=== PATIENT | female | born 1945 | race Caucasian/White ===

== ENCOUNTER → 2016-10-27 | Day surgery (SDC) | payer MEDICARE, OTHER ==
--- NOTE | 2016-10-22 12:24 | HISTORY AND PHYSICAL E ---
History and Physical NAME: BECKY MCCRARY : 1945 AGE: 71Y ADMITTED: 10/27/2016 ROOM: HISTORY: Patient known to me. 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 She was seen for adenoma polyp. She did have upper endoscopy and polypectomy. Barium enema shows mild diverticulosis done year 1999, sigmoid and descending colon diverticulosis. Colonoscopy done year 2004. In 2005, she did have upper endoscopy showing polyp. PAST SURGICAL HISTORY: 1. Cholecystectomy. 2. Tonsillectomy. PHYSICAL EXAMINATION: VITAL SIGNS: Temperature is 98, pulse 80, respirations 18, blood pressure 110/80. HEAD, EYES, EARS, NOSE, THROAT: Normal. ABDOMEN: Soft. NEUROLOGIC: Exam negative. The patient did have gastric polyp resected. Patient did have polypectomy. The patient has several small gastric polyps. No polypectomy was done. Patient did have another upper endoscopy done 2014. She did have history of polyps resected. Mucosa resection at [place]. The upper scope showed no malignancy. Benign looking gastric polyps 2014. The patient presented at this time regarding colon screening. 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 She is being followed and seen by Dr. Coats. MEDICATIONS: 1. She has diabetes - Januvia. 2. She takes valsartan. 3. Baby aspirin. 4. Fish oil. 5. Vitamin D. 6. Metformin. 7. . 8. Claritin. 9. Dukedom. 10. Zyrtec. CONCLUSION: Patient presents at this time for colon screening. PLAN: Colonoscopy. Admit 10/27/2016. DICTATING PHYSICIAN: IQRA CHNEG M.D. [id number] PHY#: [id number] ID: [id number] JOB#: [id number] ACCT: [id number] cc:IQRA CHENG M.D. >
[~2016-10-27] MED LIST: EPINEPHRINE INJ 1 MG/10 ML DISP.SYRIN ONE; FENTANYL CITRATE INJ/PF 100 MCG/2 ML AMPUL ONE; FLUMAZENIL INJ 0.5 MG/5 ML VIAL IV ONE; GLUCAGON,HUMAN RECOMB 1 MG INJ ONE; GLYCOPYRROLATE INJ 0.4 MG/2 ML VIAL ONE; LIDOCAINE 2% JELLY 30 ML TUBE ONE; NALOXONE HCL INJ/PF 0.4 MG/1 ML SDV ONE; ONDANSETRON HCL INJ/PF 4 MG/2 ML SDV ONE; SIMETHICONE 80 MG TAB.CHEW ONE
[2016-10-27] MEDS: MIDAZOLAM 2 MG/2 ML INJ ONE ×3 (08:55→09:08)
[2016-10-27 10:26] VITALS: BP 148/57
--- NOTE | 2016-10-27 10:39 | RADIOLOGY REPORT (SQ) ---
EXAM DESCRIPTION: CT ABD/PELVIS NO ORAL OR IV COMPLETED DATE/TIME: 10/27/2016 10:15 am REASON FOR STUDY: R/O PERFORATION Z12.11 ENCOUNTER FOR SCREENING FOR MALIGNANT NEOPLASM OF COL K57. 30 DVRTCLOS OF LG INT W/O PERFORATION OR ABSCESS W/O BLE Z79.899 OTHER [facility] (CURRENT) DRUG THE RAPY COMPARISON: 07/04/2011 CT abdomen pelvis TECHNIQUE: CT scan of the abdomen and pelvis performed without intravenous or oral contrast. Images reviewed with lung, soft tissue, and bone windows. Reconstructed coronal and sagittal MPR images revi ewed. All images stored on PACS. All CT scanners at this facility use dose modulation, iterative reconstruction, and/or weight based d osing when appropriate to reduce radiation dose to as low as reasonably achievable (ALARA). [facility]: Dose Right [facility]: CareDose [facility]: Dose Right [facility]: Teradose 4D [facility]: [employer] RADIATION DOSE: Up-to-date CT equipment and radiation dose reduction techniques were employed. CTDIv ol: 30.9 mGy. DLP: 1602 mGy-cm.mGy. LIMITATIONS: None. FINDINGS: No CT evidence of free intraperitoneal air post endoscopy. There is mild gaseous distensi on of colon and small bowel, appropriate for post procedure. LOWER CHEST: No significant findings. No nodules or infiltrates. NON-CONTRASTED LIVER, SPLEEN, ADRENALS: Evaluation limited by lack of IV contrast. No identified sign ificant masses. Fatty liver, mildly enlarged. PANCREAS: No masses. No peripancreatic inflammatory changes. GALLBLADDER: Surgically absent RIGHT KIDNEY AND URETER: No suspicious masses. Assessment limited by lack of IV contrast. Less than 5 mm intrarenal nonobstructive right lower pole calculi. No hydronephrosis or hydroureter. LEFT KIDNEY AND URETER: No suspicious masses. Assessment limited by lack of IV contrast. Less than 2 mm intrarenal nonobstructive left lower pole calculi. No hydronephrosis or hydroureter. AORTA AND RETROPERITONEUM: No aneurysm. Heavily calcified abdominal aorta BOWEL AND PERITONEAL CAVITY: No obvious masses or inflammatory changes. No free fluid. APPENDIX: Surgically absent PELVIS, BLADDER, AND ABDOMINAL WALL:No abnormal masses. No free fluid. Bladder normal. Normal size f emale pelvic organs. BONES: Advanced degenerative disc changes in the lumbar spine. OTHER: No other significant finding. IMPRESSION: No free intraperitoneal air. TECHNICAL DOCUMENTATION: JOB ID: [id number] Quality ID # [id number]: Final reports with documentation of one or more dose reduction techniques (e.g., Au tomated exposure control, adjustment of the mA and/or kV according to patient size, use of iterative reconstruction technique) 2010 [employer]- All Rights Reserved
[2016-10-27 11:07] LABS: ABSOLUTE LYMPHOCYTES (AUTO) 1.7 10^3/uL (0.5-4.7); ABSOLUTE MONOCYTES (AUTO) 0.7 10^3/uL (0.1-1.4); BASOPHILS % (AUTO) 0.2 % (0-2); EOSINOPHILS % (AUTO) 0.3 % (0-6); HEMATOCRIT 44.5 % (36.0-47.0); HEMOGLOBIN 14.9 g/dL (12.0-15.5); HGB HCT DIFFERENCE 0.2; LYMPHOCYTES % (AUTO) 12.7 % (13-45); MEAN CORPUSCULAR HEMOGLOBIN 29.8 pg (27.0-33.4); MEAN CORPUSCULAR HGB CONC 33.5 g/dL (32.0-36.0); MEAN CORPUSCULAR VOLUME 89 fl (80-97); MONOCYTES % (AUTO) 4.9 % (3-13); RED CELL DISTRIBUTION WIDTH 13.2 % (11.5-14.0); SEGMENTED NEUTROPHILS % (AUTO) 81.9 % (42-78); WHITE BLOOD COUNT 13.4 10^3/uL (4.0-10.5)
[2016-10-27 11:28] LABS: ALANINE AMINOTRANSFERASE 51 U/L (9-52); ALBUMIN 4.4 g/dL (3.5-5.0); ALKALINE PHOSPHATASE 87 U/L (38-126); ANION GAP 12 (5-19); ASPARTATE AMINO TRANSFERASE 70 U/L (14-36); BILIRUBIN,DIRECT 0.4 mg/dL (0.0-0.4); BILIRUBIN,TOTAL 0.7 mg/dL (0.2-1.3); BLOOD UREA NITROGEN 11 mg/dL (7-20); CALCIUM 9.8 mg/dL (8.4-10.2); CARBON DIOXIDE 30 mmol/L (22-30); CHLORIDE 97 mmol/L (98-107); CREATININE RESULT 0.64 mg/dL (0.52-1.25); GLUCOSE 220 mg/dL (75-110); POTASSIUM 3.8 mmol/L (3.6-5.0); SODIUM 139.2 mmol/L (137-145); TOTAL PROTEIN 7.3 g/dL (6.3-8.2)
[2016-10-27 11:58] LABS: CARCINOEMBRYONIC ANTIGEN 1.2 ng/mL (<3.0)
--- NOTE | 2016-10-27 14:13 | OPERATIVE REPORT E ---
Operative Report NAME: BECKY MCCRARY : 1945 AGE: 71Y DATE OF SURGERY: 10/27/2016 ROOM: PREOPERATIVE DIAGNOSES: 1. Colon screening. 2. Diverticulosis. POSTOPERATIVE DIAGNOSES: 1. Rectal polyp. 2. Sigmoid descending colon diverticulosis. PROCEDURE: Incomplete colonoscopy to the descending colon SURGEON: IQRA CHENG M.D. ANESTHESIA: Versed 3, fentanyl 100. DESCRIPTION OF PROCEDURE: Rectal exam shows tiny rectal polyp, biopsy obtained. Sigmoid descending colon diverticulosis. The procedure was terminated in the descending colon. Patient has large amount of diverticulosis and she has sigmoid descending colon diverticulosis and her abdomen has protrusion. CONCLUSION: Incomplete colonoscopy converted into incomplete to the descending colon. Sigmoid descending colon diverticulosis and rectal polyp. Unable to go through the transverse colon secondary to tortuosity and diverticulosis and protrusion of the abdomen. PLAN: Will obtain abdominal pelvic CT with no dye and no barium, plain abdominal pelvic CT to rule out perforation. Will obtain baseline CBC, CEA, and chem profile. DICTATING PHYSICIAN: IQRA CHENG M.D. [id number] PHY#: [id number] ID: [id number] JOB#: [id number] ACCT: [id number] cc:IQRA CHENG M.D. >
--- NOTE | 2016-10-27 14:35 | HX & PHYSICAL/DISCHG SUMMARY E ---
History and Physical/Discharge Summary NAME: BECKY MCCRARY : 1945 AGE: 71Y ADMITTED: 10/27/2016 DISCHARGED: 10/27/2016 HISTORY: Patient is 71, presented for colon screening colonoscopy. It was difficult incomplete to the descending. She did have benign looking polyps. Rectum, sigmoid, descending colon diverticulosis. Because of difficult colonoscopy, we obtained abdominal CT. The abdominal CT reported verbally no evidence of perforation. Clinically the patient felt fine and she is discharged to be seen as an outpatient. FINAL DIAGNOSIS: Sigmoid, descending colon diverticulosis. Benign looking polyp rectosigmoid. PLAN: Clear liquid diet. Awaiting biopsy results. Patient to see us in the office in the next few days. DICTATING PHYSICIAN: IQRA CHENG M.D. [id number] PHY#: [id number] ID: [id number] JOB#: [id number] ACCT: [id number] cc:IQRA CHENG M.D. >
== END ==
LOC: END 08:15
PROVIDERS: ATTEND Specialist
PROC: 0DBP8ZX Excision of Rectum, Via Natural or Artificial Opening Endoscopic, Diagnostic (ICD-10-PCS; principal; 2016-10-27 09:00)
DX: Z12.11 Encounter for screening for malignant neoplasm of colon (principal); K63.5 Polyp of colon; K57.30 Diverticulosis of large intestine without perforation or abscess without bleeding; R97.0 Elevated carcinoembryonic antigen [CEA]; Z79.899 Other long term (current) drug therapy; Z79.84 Long term (current) use of oral hypoglycemic drugs; Z79.82 Long term (current) use of aspirin
CPT/HCPCS: 36415; 45380; 74176; 80053; 82378; 82962; 85025; 88305; J0171; J1610; J2250; J2310; J2405; J3010; J3490

== ENCOUNTER 2018-02-06 13:30 | Emergency (ER) | payer MEDICARE, OTHER ==
--- NOTE | 2018-02-06 14:03 | ER Document Report ---
ED Hand/Wrist Injury - General Mode of Arrival: Ambulatory Information source: Patient TRAVEL OUTSIDE OF THE [place] IN LAST 30 DAYS: No <PILLO ACEVEDO - Last Filed: 02/06/18 14:23> <AMY APONTE - Last Filed: 02/06/18 17:22> - General Chief Complaint: Hand Pain Stated Complaint: THUMB PAIN Time Seen by Provider: 02/06/18 13:58 Notes: 72-year-old female who presents to the emergency department today with complaints of right thumb pain with associated redness and swelling which began last night. Patient states she was "popping a head of lettuce" when the pain began. Patient states she has a history of arthritis but denies a history of osteoporosis. (PILLO ACEVEDO) - Related Data Allergies/Adverse Reactions: No Known Allergies Allergy (Verified 10/27/16 08:40) Past Medical History - General Information source: Patient - Social History Smoking Status: Former Smoker Cigarette use (# per day): No Chew tobacco use (# tins/day): No Frequency of alcohol use: None Drug Abuse: None Lives with: Family Family History: Reviewed & Not Pertinent Patient has suicidal ideation: No Patient has homicidal ideation: No - Past Medical History Cardiac Medical History: Reports: Hx Coronary Artery Disease - high chol , Hx Hypercholesterolemia, Hx Hypertension Endocrine Medical History: Reports: Hx Diabetes Mellitus Type 2 GI Medical History: Reports: Hx Gastroesophageal Reflux Disease, Hx Hiatal Hernia Musculoskeletal Medical History: Reports Hx Arthritis Past Surgical History: Reports: Hx Appendectomy - 2011, Hx Cholecystectomy - 1991, Hx Tonsillectomy, 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 - Immunizations Hx Diphtheria, Pertussis, Tetanus Vaccination: Yes Hx Pneumococcal Vaccination: 03/15/13 <PILLO ACEVEDO - Last Filed: 02/06/18 14:23> Review of Systems - Review of Systems Constitutional: No symptoms reported EENT: No symptoms reported Cardiovascular: No symptoms reported Respiratory: No symptoms reported Gastrointestinal: No symptoms reported Genitourinary: No symptoms reported Female Genitourinary: No symptoms reported Musculoskeletal: See HPI, Joint pain - right thumb Skin: No symptoms reported Hematologic/Lymphatic: No symptoms reported Neurological/Psychological: No symptoms reported -: Yes All other systems reviewed and negative <PILLO ACEVEDO - Last Filed: 02/06/18 14:23> Physical Exam <PILLO ACEVEDO - Last Filed: 02/06/18 14:23> <AMY APONTE - Last Filed: 02/06/18 17:22> - Vital signs Vitals: Temp Pulse Resp BP Pulse Ox 97.5 F 81 16 147/76 H 95 02/06/18 13:48 02/06/18 13:48 02/06/18 13:48 02/06/18 13:48 02/06/18 13:48 - Notes Notes: PHYSICAL EXAM GENERAL: Alert, interacts well. No acute distress. HEAD: Normocephalic, atraumatic. EYES: Pupils equal, round, and reactive to light. Extraocular movements intact. ENT: Oral mucosa moist, tongue midline. NECK: Full range of motion. Supple. Trachea midline. LUNGS: No respiratory distress. EXTREMITIES: Moves all 4 extremities spontaneously. Erythema dorsally over the right thumb MCP. This area is not tender with light touch. Mild tenderness to palpation over right thumb MCP. Normal range of motion with thumb to fifth digit testing with some pain. Pain with extension of the right thumb. Pain against resistance of the right thumb. Pain with pronation against resistance, no pain with supination. NEUROLOGICAL: Alert and oriented x3. Normal speech. PSYCH: Normal affect, normal mood. SKIN: Warm, dry, normal turgor. (PILLO ACEVEDO) Course <CURTISPILLO - Last Filed: 02/06/18 14:23> <AMY APONTE - Last Filed: 02/06/18 17:22> - Re-evaluation Re-evalutation: 02/06/18 17:01 X-ray is negative, hand is minimally tender to palpation, the fact that the erythema is really not very tender to palpation points away from gout. Given the degree of erythema I will treat the patient with antibiotics in the form of Keflex for possible cellulitis. Patient will also be placed in an Benito wrap for support and discharged home. (AMY APONTE) - Vital Signs Vital signs: Temp Pulse Resp BP Pulse Ox 98.3 F 72 16 144/59 H 97 02/06/18 17:04 02/06/18 17:04 02/06/18 17:04 02/06/18 17:04 02/06/18 17:04 Procedures - Immobilization right hand Pre-Proc Neuro Vasc Exam: Normal Immobilizer type: Benito wrap Performed by: RN Post-Proc Neuro Vasc Exam: Normal, Unchanged from pre-exam Alignment checked and good: Yes <AMY APONTE - Last Filed: 02/06/18 17:22> Discharge <PILLO ACEVEDO - Last Filed: 02/06/18 14:23> <AMY APONTE - Last Filed: 02/06/18 17:22> - Discharge Clinical Impression: Cellulitis of right thumb Sprain of right thumb Qualifiers: Encounter type: initial encounter Sprain of finger site: metacarpophalangeal joint Qualified Code(s): S63.641A - Sprain of metacarpophalangeal joint of right thumb, initial encounter Condition: Stable Disposition: HOME, SELF-CARE Additional Instructions: Given the popping feeling that you had while you are tearing let us I do think it is prudent to put an Benito wrap on your thumb, this will help to support her thumb in case it was sprained. Given how red this is I also think it is reasonable to put you on antibiotics. Please take the antibiotics as directed until they are gone. Please return if you develop weakness, increasing pain or increasing redness. Prescriptions: Cephalexin Monohydrate [Keflex 500 mg Capsule] 500 mg PO Q6H 7 Days capsule Referrals: ROLLY RAMSAY PA-C [Primary Care Provider] - Follow up as needed Scribe Attestation: 02/06/18 17:22 I personally performed the services described in the documentation, reviewed and edited the documentation which was dictated to the scribe in my presence, and it accurately records my words and actions. (AMY APONTE) Scribe Documentation - Scribe Written by Scribe:: Todd Morales, 02/06/2018 1410 acting as scribe for :: Manav <PILLO ACEVEDO - Last Filed: 02/06/18 14:23>
--- NOTE | 2018-02-06 16:48 | RADIOLOGY REPORT (SQ) ---
EXAM DESCRIPTION: FINGER RIGHT COMPLETED DATE/TIME: 02/06/2018 2:46 pm REASON FOR STUDY: red and pain at R IP joint COMPARISON: None. NUMBER OF VIEWS: Three views. TECHNIQUE: AP, lateral, and oblique images acquired of the right thumb. LIMITATIONS: None. FINDINGS: MINERALIZATION: Normal. BONES: No acute fracture or dislocation. No worrisome bone lesions. SOFT TISSUES: No soft tissue swelling. No foreign body. OTHER: No other significant finding. IMPRESSION: NO RADIOGRAPHIC EVIDENCE OF ACUTE INJURY. COMMENT: SITE OF TRAUMA/COMPLAINT MARKED/STAMP COMPLETED: YES. TECHNICAL DOCUMENTATION: JOB ID: [id number] [employer]- All Rights Reserved Reading location - IP/workstation name: ALEX
[2018-02-06 17:05] VITALS: BP 144/59
== END 2018-02-06 17:12 | disposition home or self-care (01) ==
LOC: ER 13:30
DX: S63.641A Sprain of metacarpophalangeal joint of right thumb, initial encounter (principal); M25.541 Pain in joints of right hand; X58.XXXA Exposure to other specified factors, initial encounter; L03.011 Cellulitis of right finger; I25.10 Atherosclerotic heart disease of native coronary artery without angina pectoris; I10 Essential (primary) hypertension; E11.9 Type 2 diabetes mellitus without complications; Z87.891 Personal history of nicotine dependence
CPT/HCPCS: 99283

== ENCOUNTER 2018-02-16 09:08 | Day surgery (SDC) | payer MEDICARE, OTHER ==
[2018-02-09 10:37] LABS: HEMATOCRIT 40.5 % (36.0-47.0); HEMOGLOBIN 13.8 g/dL (12.0-15.5); MEAN CORPUSCULAR HEMOGLOBIN 30.2 pg (27.0-33.4); MEAN CORPUSCULAR VOLUME 89 fl (80-97); PLATELET COUNT 279 10^3/uL (150-450); RED BLOOD COUNT 4.56 10^6/uL (3.72-5.28); RED CELL DISTRIBUTION WIDTH 13.1 % (11.5-14.0); WHITE BLOOD COUNT 10.6 10^3/uL (4.0-10.5)
[2018-02-09 11:05] LABS: POTASSIUM 4.1 mmol/L (3.6-5.0)
--- NOTE | 2018-02-09 13:00 | EKG REPORT ---
SEVERITY:- BORDERLINE ECG - SINUS RHYTHM BORDERLINE PROLONGED QT INTERVAL : Confirmed by: Sanchez De Los Santos MD 09-Feb-2018 13:00:07
[~2018-02-16 09:08] MED LIST changes: +ACETAMINOPHEN 325 MG TABLET PO PRN; -EPINEPHRINE INJ 1 MG/10 ML DISP.SYRIN ONE; -FENTANYL CITRATE INJ/PF 100 MCG/2 ML AMPUL ONE; -FLUMAZENIL INJ 0.5 MG/5 ML VIAL IV ONE; -GLUCAGON,HUMAN RECOMB 1 MG INJ ONE; -GLYCOPYRROLATE INJ 0.4 MG/2 ML VIAL ONE; +LACTATED RINGERS 1000 ML IV PRN; +LIDOCAINE 0.5% INJ-PF (5 MG/ML) 50 ML SDV SUBCUT PRN; -LIDOCAINE 2% JELLY 30 ML TUBE ONE; -NALOXONE HCL INJ/PF 0.4 MG/1 ML SDV ONE; -ONDANSETRON HCL INJ/PF 4 MG/2 ML SDV ONE; -SIMETHICONE 80 MG TAB.CHEW ONE
[2018-02-16] MEDS ORDERED: PROPOFOL INJ 200 MG/20 ML VIAL IV ONE ×2 (09:55→11:14)
--- NOTE | 2018-02-16 11:08 | Discharge Summary ---
Discharge Summary (SDC) - Discharge Final Diagnosis: 1. History of carcinoid tumors stomach 2. Diverticulosis 3. Rectosigmoid colon polyps Date of Surgery: 02/16/18 Discharge Date: 02/16/18 Condition: Good Treatment or Instructions: [facility] [address] [address] POST ENDOSCOPY DISCHARGE INSTRUCTIONS 1. Diet: Start clear liquids that a regular diet as tolerated. 2. Resume all preoperative medications. All oral anticoagulants and aspirins can be resumed 24 hours after procedure. 3. If a polypectomy was performed some bleeding per rectum may occur. This should stop within 3 days. If not, please contact the office. 4. If you had a colonoscopy you may experience some bloating and delayed return of normal bowel function for several days, your regular bowel movement pattern should resume within a week. 5. Please contact [facility] at to make an appointment with Dr. Marrero for 1 to 3 weeks following procedure. 6. If you have any questions or concerns regarding your care,treatment plan or follow up, please contact our office. 7. Per clinical guidelines we recommend you undergo a repeat colonoscopy in 3 years. Referrals: ROLLY RAMSAY PA-C [Primary Care Provider] - Discharge Diet: As Tolerated Discharge Activity: Activity As Tolerated Home Care Assistance: None Needed Report the Following to Your Physician Immediately: Shortness of Breath, Increase in Pain, Fever over 101 Degrees
--- NOTE | 2018-02-16 11:15 | Operative Report ---
Operative Report DATE OF SURGERY: 02/16/18 PREOPERATIVE DIAGNOSIS: 1. Personal history of carcinoid tumors of the stomach. 2. Diverticulosis, colonic POSTOPERATIVE DIAGNOSIS: Same with 1 diffuse gastritis. 2. Multiple small pedunculated masses of the stomach consistent with residual carcinoid tumors. 3. Sigmoid diverticulosis. 4 active sigmoid colon polyps OPERATION: 1. Esophagogastroduodenoscopy. 2. Gastric antrum mucosal biopsy. 3. Proximal gastric polypectomy x2. 4. Total colonoscopy to cecum with photodocumentation. 5. Multiple colorectal polypectomies SURGEON: CHITRA OLIVAREZ ANESTHESIA: LMAC TISSUE REMOVED OR ALTERED: Biopsies of mucosa and polyps as described above COMPLICATIONS: None ESTIMATED BLOOD LOSS: Scant INTRAOPERATIVE FINDINGS: See below PROCEDURE: Patient was taken to the preop holding area the main operating room where LMAC anesthesia was induced. Surgical timeout Patient was placed in the left semirecumbent position oral mouthpiece inserted and flexible upper endoscope advanced to the oropharynx down the esophagus through the stomach into the duodenum. The patient tolerated the procedure well. The duodenum first and second portions were scope carefully. There was no evidence of polyp tumor stricture bleeding. The ampulla was visualized and photographed. The scope was brought through the pylorus, which was normal. The stomach was without bleeding. There was minimal retained gastric contents which was suctioned uneventfully. The mucosa of the stomach was raw, chronically inflamed multiple photos were taken. In the gastric antrum the mucosa was lobulated and a cold forceps biopsy was obtained for CLOtest and histology. Bleeding was minimal. The stomach were multiple small 2-4 pedunculated polypoid structures consistent with possible carcinoid tumors. Photos were taken. 2 or 3 of these were biopsied and sent as proximal gastric cyst. Bleeding was minimal. The stomach was decompressed of air. The GE junction was visualized at 40 cm from the incisor and it appeared normal. The remainder the esophagus was scope carefully and there was no evidence of tumor stricture bleeding. The scope was withdrawn for patient oropharynx. She tolerated procedure well We now repositioned instrumentation set up for colonoscopy. Rectal exam was performed. External hemorrhoids appreciated. Rectal exam revealed no evidence of mass in the rectal canal. The flexible adult colonoscope was advanced all the way to the cecum. This was a challenging teacher because of the convolutions of the colon, the extensive sigmoid diverticulosis with tortuosity of the sigmoid colon, and the patient's body habitus. Nonetheless this is an excellent set in a well-prepped bowel. The anatomy was appreciated. The scope was checked the mucosa carefully. There was no evidence of tumor stricture bleeding. In the rectosigmoid colon in addition to extensive diverticulosis disease other were multiple small plaque -like polyps which were removed at 20 and 25 cm with a cold forceps device all consistent with hyperplastic polyps. Specimens were sent in one container. Bleeding was minimal. The scope removed . SHe tolerated procedure well and taken recovery in stable condition. Per surveillance guidelines, patient be appropriate candidate for follow-up colonoscopy
[2018-02-16 13:22] VITALS: BP 140/66
== END 2018-02-16 12:15 | disposition home or self-care (01) ==
LOC: OROUT 09:08
PROVIDERS: ATTEND Surgery
DX: C7A.092 Malignant carcinoid tumor of the stomach (principal); K29.50 Unspecified chronic gastritis without bleeding; K57.30 Diverticulosis of large intestine without perforation or abscess without bleeding; K63.5 Polyp of colon; Z86.010 Personal history of colon polyps; E78.00 Pure hypercholesterolemia, unspecified; I10 Essential (primary) hypertension; E11.9 Type 2 diabetes mellitus without complications; I89.0 Lymphedema, not elsewhere classified; Z87.891 Personal history of nicotine dependence; Z79.899 Other long term (current) drug therapy; Z79.82 Long term (current) use of aspirin; Z79.84 Long term (current) use of oral hypoglycemic drugs; E66.9 Obesity, unspecified; Z68.41 Body mass index [BMI] 40.0-44.9, adult; M19.90 Unspecified osteoarthritis, unspecified site
CPT/HCPCS: 43239; 45380; 93005; 82962; 80051; 85027; 88342 ×2; 88305 ×2; 93010; J2704; 813

== ENCOUNTER 2018-12-15 09:33 | Day surgery (SDC) | payer MEDICARE, OTHER ==
[~2018-12-15 09:33] MED LIST changes: -ACETAMINOPHEN 325 MG TABLET PO PRN; +CHONDR SU A NA/HYALUR INTRAOC KIT (SURGICARE) ONE; +EPINEPHRINE INJ/PF 1 MG/1 ML AMPULE ONE; +KETOROLAC TROMETHAMINE 0.45% 4 DROP/0.4 ML DROPERETTE OS PRN; -LACTATED RINGERS 1000 ML IV PRN; -LIDOCAINE 0.5% INJ-PF (5 MG/ML) 50 ML SDV SUBCUT PRN; +LIDOCAINE 1%/PHENYLEPHRINE 1.5% 1 ML VIAL ONE
[2018-12-15] MEDS: TETRACAINE HCL 0.5% OPH SOLN 4 ML OS PRN ×3 (10:45→11:27)
[2018-12-15] MEDS: TROPICAMIDE 1% OPH SOLN 15 ML OS PRN ×3 (10:45→11:05)
[2018-12-15] MEDS: CYCLOPENTOLATE 0.2%/PHENYLEPHRINE 1% OPH SOLN 2 ML OS PRN ×3 (10:45→11:05)
[2018-12-15] MEDS: BESIFLOXACIN HCL 0.6% OPH SUSP 5 ML BOTTLE OS PRN ×5 (10:45→11:51)
[2018-12-15] MEDS ORDERED: MIDAZOLAM 2 MG/2 ML INJ ONE (10:57)
[2018-12-15] MEDS: DORZOLAMIDE HCL 2%/TIMOLOL MALEAT 0.5% OPH SOLN 10 ML OS PRN ×3 (11:50→11:51)
--- NOTE | 2018-12-16 13:03 | Operative Report ---
Operative Report-[facility] Operative Report: DATE OF SURGERY: [12/15/2018] PREOPERATIVE DIAGNOSIS: Cataracts, left eye POSTOPERATIVE DIAGNOSIS: Cataract, left eye OPERATION: Cataract extraction with insertion of an toric IOL of the left eye. Intraocular Lens Model: [21.5 sn6AT5 rotated to 176 degrees] reason for surgery is difficulty seeing road signs SURGEON: Konstantin Freeman MD ANESTHESIA: Topical PROCEDURE: After obtaining appropriate consent, the patient's left eye was prepped and draped in a sterile fashion as well as the surgeon in the sterile manner and cataract surgery was started. First a paracentesis blade was used to make a side-port incision. Viscoelastic was used to inflate the anterior chamber. Next a 2.4 mm incision was made with a 2.4 mm blade, clear corneal temporarily. A continuous capsulorrhexis was made using a cystotome and Utrata forceps. Following this hydrodissection was carried out to make commands fully loose and mobile and it was rotated 90 degrees. Following this, a divide and conquer technique was used to phacoemulsify the lens. The remaining cortex was removed with an irrigation/aspiration. Provisc was instilled into the capsular bag to inflate the bag.The intracular lens was placed. The remaining viscoelastic material was removed with irrigation/aspiration. Following this, the incision was found to be watertight. Besivance and Cosopt was instilled into the eye and a protective shield was placed over the eye. The patient was turned to the postoperative recovery in a stable condition.
== END 2018-12-15 12:46 | disposition home or self-care (01) ==
LOC: SC 09:33
PROVIDERS: ATTEND Internal Medicine
DX: H25.813 Combined forms of age-related cataract, bilateral (principal); H04.123 Dry eye syndrome of bilateral lacrimal glands; H43.813 Vitreous degeneration, bilateral; H18.423 Band keratopathy, bilateral; E11.9 Type 2 diabetes mellitus without complications; E78.00 Pure hypercholesterolemia, unspecified; I25.10 Atherosclerotic heart disease of native coronary artery without angina pectoris; M10.9 Gout, unspecified; E66.9 Obesity, unspecified; I11.9 Hypertensive heart disease without heart failure; Z87.891 Personal history of nicotine dependence; Z79.82 Long term (current) use of aspirin; Z79.899 Other long term (current) drug therapy; Z79.84 Long term (current) use of oral hypoglycemic drugs
CPT/HCPCS: 66984; 82962; 00142; V2787; J2250; J3490 ×2; A9270; J0171; J2370; 142

== ENCOUNTER 2019-01-03 08:56 | Day surgery (SDC) | payer MEDICARE, OTHER ==
[~2019-01-03 08:56] MED LIST changes: -CHONDR SU A NA/HYALUR INTRAOC KIT (SURGICARE) ONE; -EPINEPHRINE INJ/PF 1 MG/1 ML AMPULE ONE; +KETOROLAC TROMETHAMINE 0.45% 4 DROP/0.4 ML DROPERETTE OD PRN; -KETOROLAC TROMETHAMINE 0.45% 4 DROP/0.4 ML DROPERETTE OS PRN; -LIDOCAINE 1%/PHENYLEPHRINE 1.5% 1 ML VIAL ONE
[2019-01-03] MEDS: BESIFLOXACIN HCL 0.6% OPH SUSP 5 ML BOTTLE OD PRN ×4 (10:01→10:57)
[2019-01-03] MEDS: TROPICAMIDE 1% OPH SOLN 15 ML OD PRN ×3 (10:01→10:21)
[2019-01-03] MEDS: CYCLOPENTOLATE 0.2%/PHENYLEPHRINE 1% OPH SOLN 2 ML OD PRN ×3 (10:01→10:21)
[2019-01-03] MEDS: TETRACAINE HCL 0.5% OPH SOLN 4 ML OD PRN ×3 (10:02→10:39)
[2019-01-03] MEDS ORDERED: EPINEPHRINE INJ/PF 1 MG/1 ML AMPULE ONE (10:08)
[2019-01-03] MEDS ORDERED: LIDOCAINE 1%/PHENYLEPHRINE 1.5% 1 ML VIAL ONE (10:08)
[2019-01-03] MEDS ORDERED: CHONDR SU A NA/HYALUR INTRAOC KIT (SURGICARE) ONE (10:09)
[2019-01-03] MEDS ORDERED: FENTANYL CITRATE INJ/PF 100 MCG/2 ML AMPUL ONE (10:41)
[2019-01-03] MEDS ORDERED: MIDAZOLAM 2 MG/2 ML INJ ONE (10:41)
[2019-01-03] MEDS: DORZOLAMIDE HCL 2%/TIMOLOL MALEAT 0.5% OPH SOLN 10 ML OD PRN ×2 (10:57)
--- NOTE | 2019-01-03 12:32 | Operative Report ---
[facility]: DATE OF SURGERY: [01/03/2019] PREOPERATIVE DIAGNOSIS: Cataract, right eye POSTOPERATIVE DIAGNOSIS: Cataract, right eye OPERATION: Cataract extraction with insertion of an toric IOL of the right eye. Intraocular Lens Model: [21.5 sn6at6 at 176 degrees] reason For surgery was difficulty seeing the television SURGEON: Konstantin Freeman MD ANESTHESIA: Topical PROCEDURE: After obtaining appropriate consent, the patient's right eye was prepped and draped in a sterile fashion as well as the surgeon in the sterile manner and cataract surgery was started. First a paracentesis blade was used to make a side-port incision. Viscoelastic was used to inflate the anterior chamber. Next a 2.4 mm incision was made with a 2.4 mm blade, clear corneal temporarily. A continuous capsulorrhexis was made using a cystotome and Utrata forceps. Following this hydrodissection was carried out to make the guero fully loose and mobile and it was rotated. Following this, a divide and conquer technique was used to phacoemulsify the guero. The remaining cortex was removed with an irrigation/aspiration. Provisc was instilled into the capsular bag to inflate the bag. The intraocular lens was placed. The remaining viscoelastic material was removed with irrigation/aspiration. Following this, the incision was found to be watertight. Besivance and Cosopt was instilled into the eye and a protective shield was placed over the eye. The patient was reurned to the postoperative recovery in a stable condition.
== END 2019-01-03 11:36 | disposition home or self-care (01) ==
LOC: SC 08:56
PROVIDERS: ATTEND Internal Medicine
DX: H25.811 Combined forms of age-related cataract, right eye (principal); Z96.1 Presence of intraocular lens; I25.2 Old myocardial infarction; I10 Essential (primary) hypertension; E11.9 Type 2 diabetes mellitus without complications; M10.9 Gout, unspecified
CPT/HCPCS: 82962; 00142; 66984; V2787; J2250; J3490 ×2; A9270; J0171; J3010; J2370; 142

== ENCOUNTER 2020-04-04 06:59 | Day surgery (SDC) | payer MEDICARE, OTHER ==
[2020-04-01 10:14] LABS: HEMATOCRIT 40.2 % (36.0-47.0); HEMOGLOBIN 13.6 g/dL (12.0-15.5); MEAN CORPUSCULAR HEMOGLOBIN 29.7 pg (27.0-33.4); MEAN CORPUSCULAR HGB CONC 33.9 g/dL (32.0-36.0); MEAN CORPUSCULAR VOLUME 88 fl (80-97); PLATELET COUNT 236 10^3/uL (150-450); RED BLOOD COUNT 4.59 10^6/uL (3.72-5.28); RED CELL DISTRIBUTION WIDTH 14.1 % (11.5-14.0); WHITE BLOOD COUNT 8.7 10^3/uL (4.0-10.5)
--- NOTE | 2020-04-01 13:15 | EKG REPORT ---
SEVERITY:- OTHERWISE NORMAL ECG - SINUS RHYTHM LEFT AXIS DEVIATION NONSPECIFIC INTRAVENTRICULAR CONDUCTION DELAY : Confirmed by: Sanchez De Los Santos MD 01-Apr-2020 13:14:18
[~2020-04-04 06:59] MED LIST changes: -KETOROLAC TROMETHAMINE 0.45% 4 DROP/0.4 ML DROPERETTE OD PRN; +RINGERS SOLUTION,LACTATED 1,000 ML IV PRN
--- OUTSIDE RECORDS SUMMARY | 2020-04-04 07:01 | XMS REPORT ---
:1945 [facility] [address] [place] [address] Care Team Providers Name Role Phone Kb KU Attending Clinician Unavailable Saeed KU Attending Clinician Unavailable Sol Unavailable Unavailable Jessica KU, N Unavailable Allergies, Adverse Reactions, Alerts This patient has no known allergies or adverse reactions. Medications Ordered Filled Start Stop Current Ordering Indication Dosage Frequency Signature Comments Components Medication Medication Date Date Medication? Clinician (SIG) Name Name Repatha 2019-03 Yes [place] 140 Repdaryla SureClick 2-15 Kb KU SureClick 140 MG/ML 00:00: 140 MG/ML Subcutaneou 00 Subcutaneo s Solution Auto-inject Solution or Auto-injec tor INJECT 140 MG Other every two weeks Quantity: 3 Refills: 3 Kb KU, Darshan Start : 0Active 2 x 1 ML Pen Telmisartan 2019-0 Yes Telmisarta 80 MG Oral 6-10 n 80 MG Tablet 00:00: Oral 00 Tablet Quantity: 90 Refills: 0 Start : 0Active Valsartan 2019-0 No Valsartan 160 MG Oral 3-02 160 MG Tablet 00:00: Oral 00 Tablet Quantity: 120 Refills: 0 Start : 15-May-2019 Active Atorvastati 2019-0 No Atorvastat n Calcium 3-02 in Calcium 80 MG Oral 00:00: 80 MG Oral Tablet 00 Tablet Quantity: 60 Refills: 0 Start : 15-May-2019 Active levoFLOXaci 2019-0 No levoFLOXac n 750 MG 1-14 in 750 MG Oral Tablet 00:00: Oral 00 Tablet Quantity: 5 Refills: 0 Start : 0Active Benzonatate 2019-0 No Benzonatat 100 MG Oral 1-14 e 100 MG Capsule 00:00: Oral 00 Capsule Quantity: 30 Refills: 0 Start : 0Active ProAir HFA Yes ProAir HFA 108 (90 1-10 108 (90 Base) 00:00: Base) MCG/ACT 00 MCG/ACT Inhalation Inhalation Aerosol Aerosol Solution Solution Quantity: 8 Refills: 0 Start : 0Active metFORMIN 2018-03 Yes metFORMIN HCl ER 500 2-12 HCl ER 500 MG Oral 00:00: MG Oral Tablet 00 Tablet Extended Extended Release 24 Release 24 Hour Hour Quantity: 180 Refills: 0 Start : 9Active Bydureon 2018-03 Yes Bydureon BCise 2 2-12 BCise 2 MG/0.85ML 00:00: MG/0.85ML Subcutaneou 00 Subcutaneo s us Auto-inject Auto-injec or tor Quantity: 3 Refills: 0 Start : 9Active Ciprofloxac 2018-03 No Ciprofloxa in HCl - 0-28 yana HCl - 500 MG Oral 00:00: 500 MG Tablet 00 Oral Tablet Quantity: 10 Refills: 0 Start : 9Active Nitroglycer Yes Francisco Nitroglyce in 0.4 MG -18 Saeed rin 0.4 MG Sublingual 00:00: MD Sublingual Tablet 00 Tablet Sublingual Sublingual DISSOLVE 1 TAB UNDER TONGUE NEEDED FOR CHEST PAIN. MAY REPEAT EVERY 5 MIN UP TO 3 TABS IF NO RELIEF CALL 911. Quantity: 30 Refills: 3 Francisco Tipton MD Start : 9Active Metoprolol Yes Metoprolol Succinate 4-13 Succinate ER 25 MG 00:00: ER 25 MG Oral Tablet 00 Oral Extended Tablet Release 24 Extended Hour Release 24 Hour Quantity: 30 Refills: 0 Start : 9Active Atorvastati No Atorvastat n Calcium 4-13 in Calcium 40 MG Oral 00:00: 40 MG Oral Tablet 00 Tablet Quantity: 30 Refills: 0 Start : 9Active Atorvastati Yes 1 Atorvastat n Calcium 4-13 in Calcium 80 MG Oral 00:00: 80 MG Oral Tablet 00 Tablet TAKE 1 TABLET AT BEDTIME. Quantity: 30 Refills: 2 Start : 9Active Allopurinol Yes Allopurino 300 MG Oral 2-21 l 300 MG Tablet 00:00: Oral 00 Tablet Refills: 0 Start : 9Active Cyanocobala Yes Cyanocobal min 1000 -29 keyes 1000 MCG/ML 00:00: MCG/ML Injection 00 Injection Solution Solution Quantity: 10 Refills: 0 Start : 9Active Janumet XR No Janumet XR 50-1000 MG 1-07 50-1000 MG Oral Tablet 00:00: Oral Extended 00 Tablet Release 24 Extended Hour Release 24 Hour Quantity: 90 Refills: 0 Start : 21-Mar-2018 Active Valsartan No Valsartan 320 MG Oral 1-07 320 MG Tablet 00:00: Oral 00 Tablet Quantity: 90 Refills: 0 Start : 21-Mar-2018 Active Fish Oil Yes Fish Oil 1000 MG 1-07 1000 MG Oral 00:00: Oral Capsule 00 Capsule Quantity: 100 Refills: 0 Start : 21-Mar-2018 Active Loperamide Yes Loperamide HCl - 2 MG 1-07 HCl - 2 MG Oral 00:00: Oral Capsule 00 Capsule Quantity: 60 Refills: 0 Start : 21-Mar-2018 Active Aspirin 81 2017-03 Yes Aspirin 81 MG Oral 1-16 MG Oral Tablet 00:00: Tablet Delayed 00 Delayed Release Release Quantity: 90 Refills: 0 Start : 8Active Loratadine 2017-03 Yes Loratadine 10 MG Oral 1-16 10 MG Oral Tablet 00:00: Tablet 00 Quantity: 90 Refills: 0 Start : 8Active Aspirin 81 2017-03 Yes Aspirin 81 MG Oral 0-23 MG Oral Tablet 10:59: Tablet (81 44 MG) Active Centrum 2017-03 Yes Centrum Silver Oral 0-23 Silver Tablet 10:59: Oral 44 Tablet Active Claritin 10 2017-03 Yes Claritin MG Oral 0-23 10 MG Oral Tablet 10:59: Tablet (10 44 MG) Active Fish Oil 2017-03 Yes Fish Oil 1000 MG 0-23 1000 MG Oral 10:59: Oral Capsule 44 Capsule (1000 MG) Active Januvia 50 2017-03 Yes Januvia 50 MG Oral 0-23 MG Oral Tablet 10:59: Tablet (50 44 MG) Active Meclizine 2017-03 Yes Meclizine HCl 25 MG 0-23 HCl 25 MG Oral Tablet 10:59: Oral 44 Tablet (25 MG) Active MetFORMIN 2017-03 Yes MetFORMIN HCl ER 500 0-23 HCl ER 500 MG Oral 10:59: MG Oral Tablet 44 Tablet Extended Extended Release 24 Release 24 Hour Hour (500 MG) Active [place] 5-325 2017-03 Yes [place] MG Oral 0-23 5-325 MG Tablet 10:59: Oral 44 Tablet (5-325 MG) Active Pravastatin 2017-03 Yes Pravastati Sodium 20 0-23 n Sodium MG Oral 10:59: 20 MG Oral Tablet 44 Tablet (20 MG) Active Valsartan-H 2017-03 Yes Valsartan- ydrochlorot 0-23 Hydrochlor hiazide 10:59: othiazide 320-25 MG 44 320-25 MG Oral Tablet Oral Tablet (320-25 MG) Active Verapamil 2017-03 Yes Verapamil HCl ER 240 0-23 HCl ER 240 MG Oral 10:59: MG Oral Tablet 44 Tablet Extended Extended Release Release (240 MG) Active Vitamin B12 2017-03 Yes Vitamin injec tion 0-23 B12 Active s 10:59: Comments: 44 injections Vitamin D3 2017-03 Yes Vitamin D3 1000 UNIT 0-23 1000 UNIT Oral Tablet 10:59: Oral 44 Tablet (1000 UNIT) Active Zetia 10 MG 2017-03 Yes Zetia 10 Oral Tablet 0-23 MG Oral 10:59: Tablet (10 44 MG) Active ZyrTEC 10 2017-03 Yes ZyrTEC 10 MG Oral 0-23 MG Oral Tablet 10:59: Tablet (10 44 MG) Active Chlorthalid 2017-03 Yes Chlorthali one 25 MG 0-03 done 25 MG Oral Tablet 00:00: Oral 00 Tablet Quantity: 90 Refills: 0 Start : 15-Dec-2017 Active Zetia 10 MG 2017-03 Yes Zetia 10 Oral Tablet 0-03 MG Oral 00:00: Tablet 00 Quantity: 90 Refills: 0 Start : 15-Dec-2017 Active Voltaren 1 Yes Voltaren 1 % GEL 6-21 % GEL 00:00: Quantity: 00 100 Refills: 0 Start : 8Active Mupirocin 2 No Mupirocin % External 2 % Ointment External Ointment Refills: 0 Active Clotrimazol Yes Clotrimazo e CREA le CREA Refills: 0 Active Cyclobenzap No Cyclobenza rine HCl - butch HCl 10 MG Oral - 10 MG Tablet Oral Tablet Refills: 0 Active Colchicine Yes Colchicine 0.6 MG Oral 0.6 MG Tablet Oral Tablet Refills: 0 Active Problems Condition Condition Condition Status Onset Resolution Last Treatin g Comments Name Details Category Date Date Treatment Clinician Date Anemia Anemia Problem Active Horton, HL7.CCDAR2 Love Arthritis Arthritis Problem Active Horton, HL7.CCDAR2 Love Cancer Cancer Problem Active Horton, HL7.CCDAR2 Love Diabetes Diabetes Problem Active Horton, Mellitus Mellitus HL7.CCDAR2 Love Do You Do You Problem Active Horton, Require Require HL7.CCDAR2 Love Antibiotics Antibiotics for Dental for Dental Work? Work? Encounter Encounter Problem Active Horton, for for HL7.CCDAR2 Love education education Gastrointes Gastrointes Problem Active Horton , tinal tinal HL7.CCDAR2 Love Disease Disease Hayfever/ Hayfever/ Problem Active Horton, Allergies Allergies HL7.CCDAR2 Love High blood High blood Problem Active Horton, pressure pressure HL7.CCDAR2 Love History of History of Problem Active Horton, parotid parotid HL7.CCDAR2 Love cancer cancer Infective Infective Problem Active Brodish, otitis otitis HL7.CCDAR2 Sravan N externa of externa of both ears both ears Nasal Nasal Problem Active Horton, obstruction obstruction HL7.CCDAR2 Kryst al or or vestibuliti vestibuliti s (Renamed s (Renamed from Nasal from Nasal discomfort) discomfort) Neck pain Neck pain Problem Active Horton, HL7.CCDAR2 Love Vasomotor Vasomotor Problem Active Horton, rhinitis rhinitis HL7.CCDAR2 Love (Renamed (Renamed from from Non-allergi Non-allergi c vasomotor c vasomotor rhinitis) rhinitis) Benign Benign Problem Active hypertensio hypertensio n n Coronary Coronary Problem Active artery artery disease disease Heart Heart Problem Active failure failure Mixed Mixed Problem Active hyperlipide hyperlipide davon davon Essential Essential Problem Active hypertensio hypertensio n n Atheroscler Atheroscler Problem Active osis of osis of [place] coronary coronary artery of artery of [place] heart heart without without angina angina pectoris pectoris Diabetes Diabetes Problem Active mellitus mellitus Morbid Morbid Problem Active obesity obesity Procedures Procedure Date / Time Performed Performing Clinician Mj rodriguez CMP(Complete Metabolic Panel) 2020-02-22 00:00:00 Lipid Panel 2020-02-22 00:00:00 Direct LDL 2020-02-22 00:00:00 EKG 2020-02-15 00:00:00 2 Carcinoid tumors removed from Horton, Lynette l stomach Adenoidectomy Horton, Love Blood Pressure Monitoring Horton, Love Cholecystectomy Horton, Love e/o sebaceous cyst Horton, Love Flu Vaccine Horton, Love left parotidectomy Horton, Love Mammogram, Screening Horton, Love Pneumovax Horton, Love Tonsillectomy Horton, Love History of Appendectomy History of Gallbladder surgery History of Tonsillectomy with adenoidectomy History of Salivary gland surgery Results Test Description Test Time Test Comments Text Results Atomic Results Result Comments CMP(Complete Metabolic Panel) 2020-02-22 13:27:00 Test Item Value Reference Range Comments Glucose (test code = Glucose) 132 mg/dL 74-106 Sodium (test code = Sodium) 142 mmol/L 135-145 Potassium (test code = Potassium) 3.9 mmol/L 3.5-5.3 Chloride (test code = Chloride) 99 mmol/L 98-107 CO2 (test code = CO2) 30 mmol/L 22-30 Creatinine, serum (test code = Creatinine, serum) 0.60 mg/dL 0.10-1.04 Glomerular Filtration Rate (test code = Glomerular Filtration >6 0 >60 Rate) Glomerular Filtration Rate AA (test code = Glomerular >60 >60 Filtration Rate AA) Blood Urea Nitrogen (test code = Blood Urea Nitrogen) 10 mg/dL 7-17 Calcium (test code = Calcium) 10.2 mg/dL 8.4-10.5 Phosphorus (test code = Phosphorus) 3.8 mg/dL 2.5-4.5 Total Protein (test code = Total Protein) 7.1 g/dL 6.3-8. 2 Albumin (test code = 20980-3) 4.4 g/dL 3.5-5.0 Total Bilirubin (test code = Total Bilirubin) 0.5 mg/dL 0. 2-1.3 Bilirubin, unconj (test code = Bilirubin, unconj) 0.4 mg/dL 0.0-1.1 Bilirubin, Direct (test code = Bilirubin, Direct) 0.1 mg/dL 0.0-0.4 Alkaline Phosphatase (test code = Alkaline Phosphatase) 75 U/L 20-150 Alanine Transaminase (test code = Alanine Transaminase) 20 U/L 0-35 Aspartate Aminotransferase (test code = Aspartate 31 U/L 3-36 Aminotransferase) Lipid [id number] 13:27:00 Test Item Value Reference Range Comments Chol/HDL Ratio (test code = 9-1) 3.9 {ratio} 0.0-6.0 High Density Lipoprotein Cholesterol (test code 48 mg/dL 40-110 = High Density Lipoprotein Cholesterol) Low Density Lipoprotein, calculated (test code = 79 mg/dL 1-130 Low Density Lipoprotein, calculated) Direct [id number] 13:27:00 Test Item Value Reference Range Comments Low Density Lipoprotein (test code = 9-1) 114 mg/dL 1-1 30 Assessments Condition Name Status Diagnosis Date Treating Clinici an Family history of sepsis Active History of high cholesterol Active Family history of hepatic cirrhosis Active History of hypertension Active History of diabetes mellitus Active Heart failure Active Heart failure Active Heart failure Active Benign hypertension Active Mixed hyperlipidemia Active Coronary artery disease Active Essential hypertension Active Diabetes mellitus Active Morbid obesity Active Mixed hyperlipidemia Active Atherosclerosis of [place] coronary artery of Active ass[place] heart without angina pectoris History of arthritis Active Caffeine use Active Encounters Start End Encounter Admission Attending Care Care Encounter ID Date/Time Date/Time Type Type Clinicians Facility Department 2020-02-22 2020-02-22 [id number] 13:00:00 13:00:00 t; Darshan Perez MD 2019-06-27 2019-06-27 CHANTE ArchibaldDariel [id number] 14:00:00 14:00:00 t; Francisco Infante MD 2019-02-13 2019-02-13 CHANTE ArchibaldMIESHA [id number] 14:45:00 14:45:00 t; Francisco Infante MD 2018-09-09 2018-09-09 [id number] 14:30:00 14:30:00 t; Francisco Infante MD 2018-08-04 2018-08-04 [id number] 13:30:00 13:30:00 t; Francisco Infante MD 2018-06-30 2018-06-30 [facility] [id number] 11:00:00 11:00:00 t; Francisco Infante MD 2018-01-04 2018-01-04 [facility] [id number] 14:30:00 16:28:27 Visit Myesha Brunner ENT ENT Family History Family Member Diagnosis Comments Start Date Stop Date Unspecified Arthritis Unspecified Hearing loss Unspecified Heart Attack Unspecified Hypertension Father Family history of sepsis Father Family history of Mother Family history of Mother Family history of hepatic cirrhosis Payers Payer Name Policy Type Policy Number Effective Date Expiration D ate Medicare OT Tfl OT Plan of Treatment Planned Activity Planned Date Details Comments Future Scheduled Test [code = ] Future Scheduled Test [code = ] Future Scheduled Test [code = ] Future Scheduled Test [code = ] Future Scheduled Test [code = ] Future Scheduled Test [code = ] Future Scheduled Test [code = ] Future Scheduled Test [code = ] Future Scheduled Test [code = ] Future Scheduled Test [code = ] Social History Social Habit Start Date Stop Date Comments Alcohol use "former" No alcohol use Tobacco use: Smoked for 30 ye ars. Quit 20 years ago. Smoked one pack per day . Smoking Status Start Date Stop Date Ex-smoker (finding) Vital Signs Vital Name Observation Time Observation Value Comments Temperature 2018-01-04 16:05:48 98.6 [degF] Method: Tymp anic Weight 2018-01-04 16:05:48 253 [lb_av] Height 2018-01-04 16:05:48 65 [in_us] Body Mass Index Calculated 2018-01-04 16:05:48 42.1 kg/m2 Systolic blood pressure 2020-02-22 13:11:00 138 mm[Hg] Diastolic blood pressure 2020-02-22 13:11:00 74 mm[Hg] Body height 2020-02-22 13:11:00 64 [in_us] Weight 2020-02-22 13:11:00 242.8 [lb_av] Body mass index (BMI) [Ratio] 2020-02-22 13:11:00 41.68 kg/m2 Heart Rate 2020-02-22 13:11:00 83 /min Hospital Discharge Instructions NameDatesDetailsInstructions not documentedName Dates Details History of parotid cancer : SIGNS AND SYMPTOMS OF CANCER RECURRENCE Indication: History of parotid cancer Encounter for education : How to access health information online Indication: Encounter for education
[2020-04-04] MEDS ORDERED: PROPOFOL INJ 200 MG/20 ML VIAL IV ONE (07:15)
[2020-04-04] MEDS ORDERED: LIDOCAINE 2% INJ (20 MG/ML) 20 ML MDV ONE (07:16)
--- NOTE | 2020-04-04 08:59 | Discharge Summary ---
Discharge Summary (SDC) - Discharge Final Diagnosis: 1. Personal history of gastric carcinoid tumors 2. Diabetes mellitus Date of Surgery: 04/04/20 Discharge Date: 04/04/20 Condition: Good Treatment or Instructions: [address] [address] POST ENDOSCOPY DISCHARGE INSTRUCTIONS 1. Diet: Start clear liquids that a regular diet as tolerated. 2. Resume all preoperative medications. All oral anticoagulants and aspirins can be resumed 24 hours after procedure. 3. If a polypectomy was performed some bleeding per rectum may occur. This should stop within 3 days. If not, please contact the office. 4. If you had a colonoscopy you may experience some bloating and delayed return of normal bowel function for several days, your regular bowel movement pattern should resume within a week. 5. Please contact [facility] at to make an appointment with Dr. Marrero for 1 to 3 weeks following procedure. 6. If you have any questions or concerns regarding your care,treatment plan or follow up, please contact our office. 7. Per clinical guidelines we recommend you undergo a repeat colonoscopy in 3-5 years. Referrals: ROLLY RAMSAY PA-C [Primary Care Provider] - Discharge Diet: As Tolerated Discharge Activity: Activity As Tolerated Home Care Assistance: None Needed Report the Following to Your Physician Immediately: Shortness of Breath, Increase in Pain, Fever over 101 Degrees
--- NOTE | 2020-04-04 09:04 | Operative Report ---
Operative Report DATE OF SURGERY: 04/04/20 PREOPERATIVE DIAGNOSIS: 1. Personal history of microcarcinoid tumors of the st omach. 2. Diabetes mellitus POSTOPERATIVE DIAGNOSIS: Same with chronic gastritis OPERATION: 1. Esophagogastroduodenoscopy. 2. Cold forceps biopsy gastric antrum. 3. Gastric carcinoid polypectomy times 2 SURGEON: CHITRA OLIVAREZ ANESTHESIA: LMAC TISSUE REMOVED OR ALTERED: Mucosal biopsy and polyps COMPLICATIONS: None ESTIMATED BLOOD LOSS: Scant INTRAOPERATIVE FINDINGS: See below PROCEDURE: Patient was taken of the preop holding area to the main operating room, cystoscopy suite, where LMAC anesthesia was induced. She was placed in the semirecumbent left lateral tilt position. Oral mouthpiece inserted. Surgical plan surgical timeout were conducted. The flexible upper endoscope was advanced to the oropharynx, down the esophagus through the stomach and into the first and second portions of the duodenum. The procedure was well-tolerated by the patient. The duodenum was essentially normal. There was evidence of bile, however no bleeding tumor polyp. The scope was brought back through the pylorus which was grossly unremarkable. The stomach was significant for diffuse erythematous changes throughout, with a cold forceps biopsy of the distal antrum performed for CARLOS testing. There were scattered small pedunculated polyps in the more proximal stomach along the greater curvature. Multiple photos taken. Findings were consistent with previous upper endoscopy demonstrating multiple small carcinoid tumors. 2 polypectomies were performed of the target lesions with a cold forceps device, submitted in the same container labeled greater curvature stomach polyps. Bleeding was minimal. The scope was retroflexed in the stomach look at the GE junction which was grossly unremarkable. Scope was withdrawn through the esophagus which was grossly unremarkable. There was no evidence of tumor stricture or varices. Scope was withdrawn to the patient's oropharynx. She tolerated procedure well. She is taken recovery in stable condition. Per surveillance guidelines, patient be appropriate candidate for surveillance upper endoscopy in approximately 3 years.
[2020-04-04 11:57] VITALS: BP 145/46
== END 2020-04-04 09:26 | disposition home or self-care (01) ==
LOC: OROUT 06:59
PROVIDERS: ATTEND Surgery
DX: K29.50 Unspecified chronic gastritis without bleeding (principal); K31.89 Other diseases of stomach and duodenum; K52.9 Noninfective gastroenteritis and colitis, unspecified; E11.9 Type 2 diabetes mellitus without complications; E78.00 Pure hypercholesterolemia, unspecified; Z01.812 Encounter for preprocedural laboratory examination; Z20.822 Contact with and (suspected) exposure to COVID-19; Z86.012 Personal history of benign carcinoid tumor; Z79.82 Long term (current) use of aspirin; Z79.899 Other long term (current) drug therapy; Z87.891 Personal history of nicotine dependence; Z95.5 Presence of coronary angioplasty implant and graft; Z90.49 Acquired absence of other specified parts of digestive tract; Z85.828 Personal history of other malignant neoplasm of skin; Z79.84 Long term (current) use of oral hypoglycemic drugs; Z87.19 Personal history of other diseases of the digestive system; Z86.010 Personal history of colon polyps; I25.10 Atherosclerotic heart disease of native coronary artery without angina pectoris; M19.90 Unspecified osteoarthritis, unspecified site; I89.0 Lymphedema, not elsewhere classified; E66.9 Obesity, unspecified; I25.2 Old myocardial infarction; Z68.42 Body mass index [BMI] 45.0-49.9, adult
CPT/HCPCS: 43239; 93005; 36415; 82962; 85027; 88342 ×2; 88341 ×2; 88305 ×2; 93010; 00731; U0003; J3490; J2704; C9803; 731; 87635